=== PATIENT | female | born 1945 | race Caucasian/White ===

== ENCOUNTER → 2016-07-10 | Outpatient (CLI) | payer MEDICARE, OTHER | END | disposition home or self-care (01) | LOC: RAD.S 09:32 | PROC: 3E0R33Z Introduction of Anti-inflammatory into Spinal Canal, Percutaneous Approach (ICD-10-PCS; principal; 2016-07-10) | DX: M54.17 Radiculopathy, lumbosacral region (principal) ==

== ENCOUNTER → 2016-11-03 | Outpatient (CLI) | payer MEDICARE, OTHER | END | disposition home or self-care (01) | DX: R05 Cough (principal); K80.20 Calculus of gallbladder without cholecystitis without obstruction ==